=== PATIENT | female | born 1945 | race Caucasian/White ===

== ENCOUNTER 2017-04-18 10:10 | Inpatient (IN) | payer OTHER ==
--- NOTE | 2017-04-11 11:55 | HISTORY & PHYSICAL EXAMINATION ---
DATE OF ADMISSION: 04/18/2017 CHIEF COMPLAINT: Left knee pain. HISTORY OF PRESENT ILLNESS: The patient is a 71-year-old female from [place], who presents for treatment of her left knee. She has got a fairly long history of left knee pain and discomfort that has gotten significantly worse over the past 2 years. The last shots have not been helping much at all. The knee feels unstable to her and like it is going to give out. She has pain with every step. The pain is fairly global in her knee. The more she walks, the more it hurts. She is concerned about falling and would like to have her knee replaced. PAST MEDICAL HISTORY: Significant for, 1. Prediabetes. 2. Anemia. 3. Mild obesity. 4. Gastroesophageal reflux disease. 5. Back pain, status post laminectomy. PAST SURGICAL HISTORY: Includes, 1. T&A. 2. Appendectomy. 3. Lumbar laminectomy 4. Forefoot operations. 5. Bilateral carpal tunnel releases. 6. Cataract surgery. ALLERGIES: NICKEL; LATEX; PENICILLIN; KEFLEX, WHICH CAUSES NAUSEA; AND CODEINE, WHICH CAUSES A HEADACHE. She does okay with oxycodone. CURRENT MEDICINES: 1. Magnesium 240 mg a day. 2. Vitamin E. 3. Unspecified citrate. 4. Zinc. 5. Tonic water. 6. Vitamin D. SOCIAL HISTORY: A 71-year-old female. Lives by herself. Does not drink. No smoking history. FAMILY HISTORY: Significant for heart disease, diabetes, multiple myeloma, and arthritis. REVIEW OF SYSTEMS: Significant for prediabetes. Denies any chest pain. No shortness of breath. No history of DVT or PE. No known bleeding problems. PHYSICAL EXAMINATION: GENERAL: Reveals a healthy pleasant elderly female. She looks to be in pretty good health. HEENT: Benign. NECK: Supple. No lymphadenopathy. LUNGS: Clear to auscultation. HEART: Has a regular rate and rhythm. ABDOMEN: Soft, nontender, and nondistended. EXTREMITIES: Grossly neurovascularly intact as follows: Examination of the left knee reveals the patient walks with valgus alignment to her knee. Her knee goes into further valgus with weight bearing. Small knee effusion. Range of motion is 5-120. No instability. No pain with hip motion. X-RAYS: X-rays of the left knee were reviewed. It shows advanced left knee lateral compartment DJD. She has complete loss of her lateral joint space. This has progressed significantly over the past 2 years. ASSESSMENT: A 71-year-old female with advanced left knee lateral compartment degenerative joint disease. She has failed conservative care. She has pain and instability. She would like to have her left knee replaced. PLAN: We will take her to the operating room and do a left total knee replacement. The risks and benefits of this procedure were explained to the patient, including but not limited to DVT, PE, , infection, neurological injury, vascular injury, bleeding problem, pain, limited range of motion, stiffness, failure to relieve symptoms, incomplete relief of symptoms, need for further surgery in the future, fracture, leg length inequality, nerve palsy, persistent pain, etc. The patient understands and desires to proceed. Informed consent was obtained. The patient does have a NICKEL ALLERGY, so we will use a Doll & Nephew Zirconium knee to avoid any issues with that. We will likely give her Ancef preoperatively. It does not sound like CEPHALOSPORIN is a true allergy. She does live by herself. She will certainly need some home health and some additional help at home afterwards. We will see how she does in the hospital. She may need a jail facility stay afterwards. ERICK
[2017-04-14 08:03] VITALS: BMI 31.0
--- NOTE | 2017-04-14 08:45 | PAT Medication Instructions ---
Service Date Apr 14, 2017. Current Home Medication List Oxycodone/Acetaminophen 5MG/325MG (Percocet 5MG/325MG), 1 TABLET PO Q6H PRN for Pain Medication Instructions For Your Scheduled Surgery - Take the following medications the morning of surgery with a sip of water: Oxycodone/Acetaminophen 5MG/325MG (Percocet 5MG/325MG), 1 TABLET PO Q6H PRN for Pain (can take if needed up to four hours before surgery) - Take the following medications as scheduled the night before surgery: Oxycodone/Acetaminophen 5MG/325MG (Percocet 5MG/325MG), 1 TABLET PO Q6H PRN for Pain (if needed) If you have any questions please call us at [phone] or [phone] or [phone]
--- NOTE | 2017-04-14 09:23 | DIAGNOSTIC IMAGING REPORT ---
CHEST 2 VIEWS ROUTINE HISTORY: 71 years-old Female pat preoperative exam. No acute chest complaints. COMPARISON: None available. TECHNIQUE: PA and lateral views of the chest FINDINGS: Cardiomediastinal and hilar silhouettes are within normal limits. There is atherosclerosis of the aorta. There is no pneumothorax, pleural effusion, focal airspace consolidation or overt pulmonary edema. Lungs are mildly hyperinflated. Remote rib fractures are seen bilaterally. Degenerative changes involve the spine. IMPRESSION: No acute cardiopulmonary process. The above report was generated using voice recognition software. It may contain grammatical, syntax or spelling errors. Electronically signed by: Lionel Rosado M.D. 04/14/2017 9:21 AM Dictated Date/Time: 04/14/2017 9:19 AM
[2017-04-14 10:43] LABS: BASO % 0.2 %; BASO ABS # 0.01 K/uL (0-0.2); COMPLETE YES; EOS % 2.7 %; HEMATOCRIT 39.7 % (37-47); IG% 0.2 %; LYMPH % 31.1 %; LYMPH ABS # 1.95 K/uL (1.2-3.4); MEAN CORPUSCULAR HEMOGLOBIN 31.1 pg (25-34); MEAN CORPUSCULAR HGB CONC 32.7 g/dl (32-36); MONO % 8.8 %; PLATELET COUNT 262 K/uL (130-400); RED BLOOD COUNT 4.18 M/uL (4.2-5.4); WHITE BLOOD COUNT 6.28 K/uL (4.8-10.8)
[2017-04-14 10:56] LABS: PROTHROMBIN TIME (PATIENT) 10.3 SECONDS (9.0-12.0)
[2017-04-14 11:06] LABS: ESTIMATED AVERAGE GLUCOSE 111 mg/dl; HA1C FLAG Normal (Normal)
[2017-04-14 11:43] LABS: BUN/CREATININE RATIO 32.5 (10-20); CALCIUM 8.8 mg/dl (8.5-10.1); CREATININE 0.73 mg/dl (0.60-1.20); POTASSIUM 4.2 mmol/L (3.5-5.1)
[2017-04-18] VITALS (7 sets, daily range): BP systolic 92–145; BP diastolic 53–71; PULSE 48–66; TEMP 36.3–36.7; O2SAT 95–100; Ht 160 cm; Wt 81.2 kg
[~2017-04-18] VITALS: Ht 160 cm; Wt 81.2 kg
[~2017-04-18 10:10] MED LIST: ACETAMINOPHEN 500 MG TAB PO SCH; BUPIVACAINE 0.5 % 5 MG/1 ML PF 10ML VIAL ONE; BUPIVACAINE LIPOSOME 266 MG, BUPIVACAINE/EPINEPHRINE INJ 50 ML, SODIUM CHLORIDE 0.9% PF... INFIL SCH; CEFAZOLIN 2000MG IV PUSH 10 ML IV SCH; FAMOTIDINE 20 MG TAB PO SCH; GABAPENTIN 300 MG CAP PO SCH; LACTATED RINGER'S 1000ML 1,000 ML IV SCH; LACTATED RINGER'S 1000ML 500 ML IV ONE; LACTATED RINGER'S 1000ML IV SCH; METOCLOPRAMIDE HCL 10 MG TAB PO SCH; OXYC-57 PO; SCOPOLAMINE 1.5 MG TDSY TD SCH
[2017-04-18] MEDS ORDERED: NURSING VERBAL MED ORDER ONE (11:30)
[2017-04-18] MEDS ORDERED: MIDAZOLAM HCL 1 MG/ML 2ML VIAL ONE ×2 (11:53→13:10)
[2017-04-18] MEDS ORDERED: FENTANYL CITRATE INJ 50 MCG/1 ML 2 ML VIAL ONE (11:53)
[2017-04-18] MEDS ORDERED: TRANEXAMIC ACID INJ 1,000 MG in SYRINGE 0 ML IV STA (11:57)
[2017-04-18] MEDS ORDERED: PROPOFOL IV EMULSION 10 MG/ML 20 ML VIAL IV ONE (12:20)
--- NOTE | 2017-04-18 12:35 | History & Physical Bridge Note ---
H&P Re-Evaluation Bridge Note: I have examined the patient, reviewed the History & Physical and in the interval since the performance of the History & Physical I have noted the following changes of clinical significance: No changes noted
[2017-04-18] MEDS ORDERED: BUPIVACAINE LIPOSOME 1/3% 266 MG/20 ML VIAL INFIL ONE (12:41)
[2017-04-18] MEDS ORDERED: SODIUM CHLORIDE 0.9% PF 50 ML VIAL ONE (12:41)
[2017-04-18] MEDS ORDERED: BUPIVACAINE/EPINEPHRINE 0.25% 1:200,000 30 ML VIAL ONE (12:41)
[2017-04-18] MEDS ORDERED: BACITRACIN 50000 UNIT VIAL ONE (12:41)
[2017-04-18] MEDS ORDERED: FENTANYL CITRATE INJ 50 MCG/1 ML 2 ML VIAL IV PRN (13:15)
[2017-04-18] MEDS ORDERED: EpHEDrine SULFATE INJ 50 MG/ML AMP IV PRN (13:15)
[2017-04-18] MEDS ORDERED: ONDANSETRON INJ 2 MG/ML 2 ML VIAL IV PRN (13:15)
[2017-04-18] MEDS ORDERED: ATROPINE SULFATE 0.1 MG/ML 5ML SYR IV PRN (13:15)
[2017-04-18] MEDS ORDERED: VANCOMYCIN HCL 1000MG/20ML VIAL ONE (13:24)
--- NOTE | 2017-04-18 14:47 | [facility] Post Operative Brief Note ---
Immediate Operative Summary Operative Date Apr 18, 2017. Pre-Operative Diagnosis Advanced Left Knee Lateral Compartment Degenerative Joint Disease Post-Operative Diagnosis Advanced Left Knee Lateral Compartment Degenerative Joint Disease Procedure(s) Performed Left Total Knee Arthroplasty Surgeon Dr. Echevarria Oyster Unloader Surgeon(s) SIMONE [place] Estimated Blood Loss 50 ml Findings Left Knee DJD Fluids (cc crystalloids) 1650 cc Specimens A. Left Knee Bone and Tissue Drains None Anesthesia Spinal Complication(s) None Disposition Recovery Room / PACU
[2017-04-18] MEDS ORDERED: GLUCOSE 40% GEL 15 GM TUBE PO PRN (15:00)
[2017-04-18] MEDS ORDERED: GLUCOSE 10 TABS/TUBE PO PRN (15:00)
[2017-04-18] MEDS ORDERED: GLUCAGON FOR INJ 1 MG VIAL SQ PRN (15:00)
[2017-04-18] MEDS ORDERED: METOCLOPRAMIDE HCL INJ 5 MG/ML 2 ML VIAL IV PRN (15:00)
[2017-04-18] MEDS ORDERED: MAGNESIUM HYDROXIDE SUSP 30 ML UDC PO PRN (15:00)
[2017-04-18] MEDS ORDERED: DEXTROSE 50% 50 ML SYR IV PRN (15:00)
[2017-04-18] MEDS ORDERED: ZOLPIDEM TARTRATE 5 MG TAB PO PRN (15:00)
[2017-04-18] MEDS ORDERED: ALUMINUM/MAGNESIUM/SIMETH (MAALOX MAX) 30 ML UDC PO PRN (15:00)
[2017-04-18] MEDS ORDERED: TRANEXAMIC ACID INJ 1,000 MG in SODIUM CHLORIDE 0.9% 100ML 100 ML IV SCH (15:00)
[2017-04-18] MEDS ORDERED: SILVER SULFADIAZINE 1% CR 50 GM JAR EXT PRN (15:00)
[2017-04-18] MEDS ORDERED: CEFAZOLIN IV 2,000 MG in DEXTROSE 5% 50ML 50 ML IV SCH (15:00)
[2017-04-18] MEDS ORDERED: HYDROmorphone INJ 0.5 MG/0.5 ML SYR IV PRN (15:00)
[2017-04-18] MEDS ORDERED: BISACODYL 10 MG SUPP PR PRN (15:00)
--- NOTE | 2017-04-18 15:30 | DIAGNOSTIC IMAGING REPORT ---
LEFT KNEE 2 VIEWS History: Left total knee arthroplasty. Degenerative arthritis. Postop. FINDINGS: The patient is status post a left total knee arthroplasty. The hardware is intact. No fracture or dislocation. Skin blake are in place. IMPRESSION: Left total knee arthroplasty. No evidence for hardware complication. Electronically signed by: Oswaldo Franks M.D. 04/18/2017 3:29 PM Dictated Date/Time: 04/18/2017 3:28 PM
--- NOTE | 2017-04-18 15:55 | Anesthesiology Progress Note ---
Anesthesia Post Op Note Date & Time Apr 18, 2017 at 15:55 Vital Signs Pain Intensity: 0 Vital Signs Past 12 Hours Date Time Temp Pulse Resp B/P (MAP) Pulse Ox O2 Delivery O2 Flow Rate FiO2 04/18/17 15:50 46 16 95/48 (63) 100 Nasal Cannula 2 04/18/17 15:40 52 14 102/47 100 Nasal Cannula 2 04/18/17 15:30 59 13 101/50 99 Nasal Cannula 2 04/18/17 15:20 54 16 99/59 (78) 100 Nasal Cannula 2 04/18/17 15:10 53 12 96/51 (61) 100 Nasal Cannula 2 04/18/17 15:00 64 12 95/43 (62) 100 Oxymask 10 04/18/17 14:52 36.5 64 12 95/42 100 Oxymask 10 04/18/17 10:44 36.6 66 20 145/59 98 Room Air Notes Mental Status: alert / awake / arousable, participated in evaluation Pt Amnestic to Procedure: Yes Nausea / Vomiting: adequately controlled Pain: adequately controlled Airway Patency, RR, SpO2: stable & adequate BP & HR: stable & adequate Hydration State: stable & adequate Neuraxial Anesthesia: was administered, sensory block is resolving Anesthetic Complications: no major complications apparent
[2017-04-18] MEDS ORDERED: INSULIN HUMAN REGULAR SC SCH (16:00)
[2017-04-18] MEDS: CHECK SCOPOLAMINE PATCH PLACEMENT SCH ×2 (16:00→23:14)
[2017-04-18] MEDS: INSULIN HUMAN REGULAR SC SCH ×2 (17:15→21:00)
[2017-04-18] MEDS: SODIUM CHLORIDE 0.9% 1000ML 1,000 ML IV SCH (17:35)
[2017-04-18] MEDS: FERROUS GLUCONATE 324 MG TAB PO SCH (17:51)
[2017-04-18] MEDS: KETOROLAC TROMETHAMINE 15 MG/ML VIAL IV. SCH ×2 (17:51→23:14)
[2017-04-18] MEDS: ONDANSETRON INJ 2 MG/ML 2 ML VIAL IV PRN (18:01)
--- NOTE | 2017-04-18 20:05 | OPERATIVE REPORT ---
DATE OF OPERATION: 04/18/2017 SURGEON: Nick Echevarria MD. OPERATIONS PROJECT MANAGER: SIMONE Reed. PREOPERATIVE DIAGNOSIS: Left knee degenerative joint disease. POSTOPERATIVE DIAGNOSIS: Same. PROCEDURE PERFORMED: Journey II zirconium cemented posterior stabilized total knee arthroplasty. COMPLICATIONS: None. ESTIMATED BLOOD LOSS: 50 mL. FLUID REPLACEMENT: 1550 mL of crystalloid fluid replacement. TOURNIQUET TIME: 64 minutes at 300 mmHg. ANESTHESIA: Spinal with adductor canal block. DRAINS: None. SPECIMENS: Left knee sent for pathology. OPERATIVE INDICATIONS: The patient is a 71-year-old female who has had several year history of left knee pain and discomfort. This became less responsive to conservative care over time. She had advanced lateral compartment DJD. She is adamant about proceeding with surgery. The patient does apparently have a NICKEL ALLERGY. Therefore, we used the Doll & Nephew zirconium total knee arthroplasty. OPERATIVE FINDINGS: Operative findings revealed advanced left knee poor [id number] disease of the lateral femoral condyle and lateral tibial plateau. The remainder of her knee joint was fairly well preserved. She had a moderate size joint effusion. She had a valgus alignment to her knee. OPERATIVE IMPLANTS: Doll & Nephew zirconium total knee arthroplasty with components as follows: 1. A left size 4 posterior stabilized femoral component. 2. A left size 3 tibial tray. 3. An 11 mm posterior stabilized polyethylene insert. 4. A 29 x 9 all poly patella. OPERATIVE PROCEDURE: The patient was taken to the operating room and then placed on the operating room table in supine position. All contact areas were appropriately padded. IV antibiotics were provided by the anesthesia team. A spinal anesthetic and adductor canal block was applied in the holding area. Short catheter was placed in sterile fashion. The left side tourniquet was then placed. The left lower extremity was then prepped and draped in the usual sterile fashion. Left leg was elevated and exsanguinated with Esmarch and tourniquet was placed at 300 mmHg. An anterior approach to the left knee was then performed through a longitudinal incision centered over the patella. Sharp dissection was carried out through the subcutaneous tissues down to the level of the extensor mechanism. A medial parapatellar arthrotomy incision was made. Some subperiosteal dissection was carried out medially. The fat pad was resected from beneath the patellar tendon. Lateral patellofemoral ligament was released. The patella was everted and the knee was flexed. The osteophytes were taken off the distal femur. The ACL and PCL were then released from the distal femur and the tibia subluxated anteriorly. The external tibial alignment jig was then placed in the anterior face of the tibia and adjusted 8 mm medially. Proximal tibial cut was made to remove about 3-4 mm of bone from the medial side. The tibia was sized to a size 3. Attention was then drawn to the femur. The distal femur was entered with a sharp drill bit. Intramedullary canal was suctioned. A left 5 degree valgus cutting guide was placed. Distal femoral cutting block was pinned in place. Distal femoral cut was made to take an additional 2 mm of bone off the distal femur. The femur was then sized and sized to a size 4. We did downsize this slightly. The AP cutting block was pinned parallel to the epicondylar axis, which was 5 degrees of external rotation. The anterior chamfer, anterior cord, posterior cut, posterior chamfer, and anterior chamfer cuts were then made. The knee was then flexed. The remnants of the medial and lateral menisci were excised. The osteophytes were taken off the posterior aspect of the femur. The trial femoral component and the box guide was placed. The box cut was made. The trochlear component was placed. The tibia was then subluxated anteriorly and a tibial tray was pinned in maximum external rotation. The drill and stem punch were used to create defect in proximal tibia for the tibial tray. I then trialed the knee and an 11 mm insert fit most appropriately. Attention was then directed to the patella. The patella was cleaned of all soft tissues. Patella thickness measured 21 mm in thickness and was cut down to 13. It was sized to a size 29 patella. Lug holes were drilled for a 29 patella. Lateral osteophyte was removed. Patella button was placed. Knee was taken through range of motion and patella tracked nicely with no thumbs test. Attention was then drawn toward placement of permanent components. All trial components were removed. A bone plug was placed in the distal femur to limit blood loss. A double batch of Pal[place]os G cement was mixed. I did add an additional gram of vancomycin due to her history of multiple scabs on her legs in the past. A Doll & Nephew Journey II, size 4 posterior stabilized zirconium femoral component was then placed followed by a size 3 tibial tray, 11 mm posterior stabilized polyethylene insert, and a 29 x 9 all poly patella. The knee was brought out into full extension until cement hardened. All extraneous cement was removed. A final cement check was then performed. Attention was then drawn toward closing. The wound was irrigated with copious amounts of pulsatile lavage solution. The tourniquet was let down for a tourniquet time of 64 minutes. Hemostasis was assured using electrocautery. The extensor mechanism was then closed with a combination of #1 PDS suture and #1 Vicryl suture in a [id number] fashion. Extensor mechanism was checked and found to be intact. The subcutaneous tissues were then closed with 2-0 Dexon suture in a buried interrupted fashion. Skin was closed skin blake. Leg was then cleaned and dried and a sterile dressing of Xeroform, 4 x 4's, sterile cast padding and Andi bandage were applied. The patient then transferred to the recovery room in stable condition. The patient tolerated the procedure without complications. All needle and sponge counts were correct at the end of the operation. I attest to the content of the Intraoperative Record and any orders documented therein. Any exception s are noted below.
[2017-04-18] MEDS: SENNA 8.6 MG TAB PO SCH (21:00)
[2017-04-18] MEDS ORDERED: TRANEXAMIC ACID INJ 1,000 MG in SYRINGE 0 ML IV SCH (21:00)
[2017-04-18] MEDS ORDERED: TRANEXAMIC ACID INJ 1,000 MG in SODIUM CHLORIDE 0.9% 100ML 100 ML IV ONE (21:00)
[2017-04-18] MEDS: CEFAZOLIN IV 2,000 MG in SYRINGE 0 ML IV SCH (21:44)
[2017-04-18] MEDS: ASPIRIN 325 MG ECTAB PO SCH (21:45)
[2017-04-18] MEDS: DOCUSATE SODIUM 100 MG CAP PO SCH (21:45)
[2017-04-18] MEDS: ACETAMINOPHEN 500 MG TAB PO SCH (21:46)
[2017-04-19] MEDS: SODIUM CHLORIDE 0.9% 1000ML 1,000 ML IV SCH ×2 (02:29→08:50)
[2017-04-19 03:46] VITALS: BP 93/57; PULSE 57; TEMP 36.7; O2SAT 96
[2017-04-19] MEDS: CEFAZOLIN IV 2,000 MG in SYRINGE 0 ML IV SCH (06:03)
[2017-04-19] MEDS: KETOROLAC TROMETHAMINE 15 MG/ML VIAL IV. SCH ×4 (06:03→23:23)
[2017-04-19] MEDS: ACETAMINOPHEN 500 MG TAB PO SCH ×3 (06:04→21:08)
[2017-04-19 07:10] VITALS: BP 93/57; PULSE 53; TEMP 36.7; O2SAT 96
[2017-04-19 07:17] LABS: MEAN CELL VOLUME 95.7 fL (80-100); MEAN CORPUSCULAR HEMOGLOBIN 30.9 pg (25-34); MEAN CORPUSCULAR HGB CONC 32.3 g/dl (32-36); MEAN PLATELET VOLUME 10.6 fL (7.4-10.4); PLATELET COUNT 174 K/uL (130-400); RED BLOOD COUNT 3.24 M/uL (4.2-5.4); WHITE BLOOD COUNT 6.74 K/uL (4.8-10.8)
[2017-04-19 07:51] LABS: BUN/CREATININE RATIO 16.9 (10-20); CALCIUM 7.7 mg/dl (8.5-10.1); CREATININE 0.79 mg/dl (0.60-1.20)
--- NOTE | 2017-04-19 08:03 | PROGRESS NOTE ---
DATE: 04/19/2017 SUBJECTIVE: A 71-year-old female postop day 1 from a left knee replacement. She is doing well. Really not having much pain. No chest pain or shortness of breath. Not feeling dizzy or lightheaded. OBJECTIVE: VITAL SIGNS: Temperature 36.7. Vital signs stable. GENERAL: Reveals a healthy pleasant, middle-aged female. She is sitting up in her bedside chair and looks comfortable. EXTREMITIES: Examination of the left leg reveals the dressing to be clean, dry and intact. She can dorsiflex and plantarflex her foot appropriately. She is neurologically intact. LABORATORY DATA: Hemoglobin is 10.0. Hematocrit 31.0. Electrolytes are pending. ASSESSMENT: A 71-year-old female postop day 2 from a left knee replacement, doing pretty well. Pain is controlled. She is anemic, but asymptomatic. PLAN: 1. DVT prophylaxis including thigh-high TEDs, SCDs, and aspirin twice a day. 2. PT/OT. Weight bear as tolerated. Left total knee protocol. 3. Pain control, doing well with current pain regimen. Really not having much pain. 4. Anemia. Will continue iron supplementation. 5. Disposition: She is really hoping to be discharged to maybe a snf facility or [facility] for a brief rehab stay. She lives by herself. She will then need some home health.
[2017-04-19] MEDS ORDERED: ULT50X PO (08:09)
[2017-04-19] MEDS ORDERED: FRRG PO (08:09)
[2017-04-19] MEDS ORDERED: ACET-24 PO (08:09)
[2017-04-19] MEDS ORDERED: ASPEC325 PO (08:09)
[2017-04-19] MEDS: CHECK SCOPOLAMINE PATCH PLACEMENT SCH ×3 (08:49→23:23)
[2017-04-19] MEDS: DOCUSATE SODIUM 100 MG CAP PO SCH ×3 (08:49→21:09)
[2017-04-19] MEDS: ASPIRIN 325 MG ECTAB PO SCH ×2 (08:49→21:09)
[2017-04-19] MEDS: FERROUS GLUCONATE 324 MG TAB PO SCH ×3 (08:50→17:45)
[2017-04-19] MEDS: MULTIVITAMIN TAB PO SCH (08:50)
[2017-04-19] MEDS: PANTOprazole SOD 40 MG TAB PO SCH (08:50)
[2017-04-19] MEDS: INSULIN HUMAN REGULAR SC SCH ×4 (08:51→21:00)
[2017-04-19] MEDS: TRAMADOL HCL 50 MG TAB PO PRN (08:57)
[2017-04-19 11:33] VITALS: BP 100/64; PULSE 54; O2SAT 96
[2017-04-19] MEDS: ONDANSETRON INJ 2 MG/ML 2 ML VIAL IV PRN (13:29)
[2017-04-19 15:24] VITALS: BP 92/58; PULSE 68; TEMP 36.9; O2SAT 94
--- NOTE | 2017-04-19 17:07 | Discharge Instructions ---
Discharge Instructions Date of Service Apr 19, 2017. Admission Reason for Admission: Left Knee Degenerative Joint Disease Discharge Discharge Diagnosis / Problem: Left Knee Replacement Discharge Goals Goal(s): Decrease discomfort, Improve function, Increase independence, Improve disease control, Therapeutic intervention Activity Recommendations Activity Level: Assistance Required Therapies: Physical Therapy, Occupational Therapy Weightbearing Status: Left weightbearing . Additional Information Patient informed of condition: Yes Advance Directives: No DNR: No Level of Care: Acute Rehab Communicable Disease: No Prognosis: Improving Instructions / Follow-Up Instructions / Follow-Up ACTIVITY RECOMMENDATIONS: Physical Therapy: * You will go to physical therapy three times each week for four to six weeks after your surgery in order to regain your knee range of motion and to retrain your knee to work properly. * It is just as important to make sure you are getting your knee perfectly straight as it is to regain your knee bend. * Taking a pain pill an hour before therapy can help you have a more productive and comfortable therapy session. Home Exercise: * You were shown a series of exercises (heel props, heel slides, etc.) in the hospital. Do these exercises three to four times each day including the exercises you were shown in physical therapy. Walking: * Get up and walk several times each day. For the first four weeks, try not to stand or walk for more than one hour at a time. If you do stand or walk for more than one hour, you will not hurt anything, but your knee and leg will likely swell. * As you feel comfortable, you may change from the walker or crutches to a cane and then to independent walking. MEDICATIONS: New Medicine: * You will likely be taking one or more of these medications: 1. Tramadol - A quick and shorter-acting pain medication. Take one to two tablets every four to six hours to lessen your pain. 2. Iron Sulfate - Take three times each day for the month after surgery to help you replace the blood lost during surgery. 3. Aspirin - Thins your blood to lessen the chance of forming a blood clot. * The most common side effects of pain medicine and iron are nausea and constipation. If nausea or constipation is too much of a problem or if you have any questions about your new medicines or doses, call [facility] at . We will try to help you manage these issues. VERY IMPORTANT TO READ AND REVIEW" Pain: * The immediate post-operative period after knee replacement surgery is often quite painful. * You are given a prescription for pain medicine. You should take it, as directed, when you need it, especially before physical therapy and before going to bed. Pain that interferes with sleep is very common and can last several months. * You will likely need pain medicine for the first four to six weeks. It will not stop all of the pain. The pain will lessen and as you feel better, you may change to milder pain medicine such as Tylenol. * The most common side effects of pain medicine are nausea and constipation, so don't take more than you need. SPECIAL CARE INSTRUCTIONS: TEDs/Elastic Stockings: * The white elastic stockings help limit swelling and prevent blood clots from forming in your legs. The more you wear them, the more they work. * Wear them for six weeks after knee replacement surgery and four weeks after partial knee replacement. Prevention of Infection: * Take antibiotics one hour before any dental cleaning, dental work, urological procedure, gastrointestinal procedure or any invasive surgery in order to prevent your new joint from getting infected. * You may get the antibiotics from the doctor performing the procedure or you may call our office at before and we will call in a prescription to the pharmacy of your choice. Things to Watch For: * Drainage from the incision site that occurs more than one week after your surgery. * Severely increased knee/leg pain or swelling. * Increased redness at the incision site. * Fever above 102 degrees Fahrenheit. * Unusual chest pain or shortness of breath. * Unusual pain or burning with urination. Call [facility] at with any of the above problems or if you have any questions about your medicines or recovery. FOLLOW UP VISIT: Make an appointment to see your doctor for approximately two weeks after surgery for a progress check and staple removal by calling the office at . Current Hospital Diet Patient's current hospital diet: Diabetes Type 2 Diet Discharge Diet Recommended Diet: Diabetes Type 2 Diet Procedures Procedures Performed: Left Total Knee Arthroplasty Pending Studies Studies pending at discharge: no Laboratory Results Hemoglobin A1c Test 04/14/17 08:52 Range/Units Estimated Average Glucose 111 mg/dl Hemoglobin A1c 5.5 4.5-5.6 % Medical Emergencies . Who to Call and When: Medical Emergencies: If at any time you feel your situation is an emergency, please call 911 immediately. . Non-Emergent Contact Non-Emergency issues call your: Surgeon . . "Provider Documentation" section prepared by Nick Echevarria. . Core Measure Problem Core Measures: None
[2017-04-19] MEDS: SENNA 8.6 MG TAB PO SCH (21:00)
[2017-04-19 23:13] VITALS: BP 109/58; PULSE 70; TEMP 36.7; O2SAT 97
[2017-04-20 05:40] VITALS: BP 111/65; PULSE 60; TEMP 36.6; O2SAT 95
[2017-04-20] MEDS: ACETAMINOPHEN 500 MG TAB PO SCH ×2 (05:43→13:00)
[2017-04-20] MEDS: KETOROLAC TROMETHAMINE 15 MG/ML VIAL IV. SCH ×3 (06:00→12:49)
[2017-04-20] MEDS: CHECK SCOPOLAMINE PATCH PLACEMENT SCH (07:30)
[2017-04-20] MEDS: FERROUS GLUCONATE 324 MG TAB PO SCH ×3 (07:31→12:41)
[2017-04-20] MEDS: MULTIVITAMIN TAB PO SCH (07:31)
[2017-04-20] MEDS: ASPIRIN 325 MG ECTAB PO SCH (07:31)
[2017-04-20] MEDS: PANTOprazole SOD 40 MG TAB PO SCH (07:31)
[2017-04-20] MEDS ORDERED: NURSING VERBAL MED ORDER ONE (07:45)
--- NOTE | 2017-04-20 08:28 | PROGRESS NOTE ---
DATE: 04/20/2017 SUBJECTIVE: A 71-year-old female postop day #2 from a left knee replacement. She is doing pretty well. Pain has been controlled. Therapy went reasonably well. Denies any chest pain or shortness of breath. Not feeling dizzy or lightheaded. OBJECTIVE: VITAL SIGNS: Temperature is 36.6. Vital signs stable. GENERAL: Reveals a pleasant elderly female. She is sitting in her bedside chair and looks pretty comfortable. EXTREMITIES: Examination of the left leg reveals the dressing to be clean, dry and intact. A little tender to palpation. She can dorsiflex and plantarflex her foot appropriately. Calf is soft and supple. ASSESSMENT: A 71-year-old female postop day #2 from a left knee replacement, doing pretty well. Pain is reasonably well controlled. PLAN: 1. DVT prophylaxis including thigh high TEDs, SCDs, and aspirin twice a day. 2. PT, OT. Weight bear as tolerated. Left total knee protocol. 3. Pain control, doing well with current pain regimen. 4. Disposition: She is hoping to be discharged to [facility] for a brief rehab stay once accepted improved and is medically stable.
[2017-04-20] MEDS: DOCUSATE SODIUM 100 MG CAP PO SCH (08:38)
[2017-04-20] MEDS: TRAMADOL HCL 50 MG TAB PO PRN ×2 (08:40→12:44)
[2017-04-20 12:51] VITALS: BP 111/65; PULSE 60; TEMP 36.6; O2SAT 95
== END 2017-04-20 13:37 | DRG 470 ==
LOC: C.ACU 10:10 → C.3E 11:00 → ENRESERV 16:08
PROVIDERS: ADMIT Orthopaedic Surgery Sports Medicine; ATTEND Orthopaedic Surgery Sports Medicine
PROC: 0SRD069 Replacement of Left Knee Joint with Oxidized Zirconium on Polyethylene Synthetic Substitute, Cemented, Open Approach (ICD-10-PCS; principal; 2017-04-18 12:40)
DX: M17.12 Unilateral primary osteoarthritis, left knee (principal); R73.03 Prediabetes; D64.9 Anemia, unspecified; E66.9 Obesity, unspecified; Z79.899 Other long term (current) drug therapy; Z91.048 Other nonmedicinal substance allergy status; Z60.2 Problems related to living alone; Z68.31 Body mass index [BMI] 31.0-31.9, adult; Z83.3 Family history of diabetes mellitus; Z82.61 Family history of arthritis; Z80.7 Family history of other malignant neoplasms of lymphoid, hematopoietic and related tissues